=== PATIENT | male | born 1940 | race Caucasian/White ===

== ENCOUNTER → 2017-08-15 | Outpatient (CLI) | payer MEDICARE, BC ==
[~2017-08-15] MED LIST: ATORVASTATIN PO; BACLOFEN10 MG PO; CALCIUM 600 +1 EAC1 PO; CLONAZEPAM0.5 MG PO; CLONAZEPAM1 MG PO; CLOPIDOGREL75 MG PO; DILTIAZEM HCL60 MG PO; DIOVAN160 MG PO; DYMISTA NASAL S23 GM; FISH OIL 1,0001 EAC3 PO; FISH OIL PO; GABAPENTIN300 MG PO; GLUCOSAMINE &1 EAC1 PO; GLUCOSAMINE CH1 EAC2 PO; HYDROCODON-ACE1 EAC9 PO; LIPITOR20 MG PO; LISINOPRIL10 MG PO; NASACORT; NASAL SPRAY30 M1; NEURONTIN PO; PANTOPRAZOLE SO40 MG PO; TESTOPEL75 MG IM; TRAVATAN Z5 ML OU; VIAGRA100 MG PO; WELLBUTRIN SR150 MG PO; XYZAL5 MG PO
[2017-08-15 08:00] LABS: BASOPHILS % 0.7 % (0.0-1.0); EOSINOPHILS # (AUTO) 0.2 (0.0-0.4); EOSINOPHILS % 3.6 % (0.0-6.0); HEMATOCRIT 43.6 % (38.2-49.6); HEMOGLOBIN 14.9 g/dL (14.0-18.0); LYMPHOCYTES # (AUTO) 1.8 (1.0-3.2); LYMPHOCYTES % 32.7 % (18.0-39.1); MEAN CORPUSCULAR HEMOGLOBIN 31.9 pg (28-32); MEAN CORPUSCULAR HGB CONC 34.2 g/dL (31-35); MEAN CORPUSCULAR VOLUME 93.4 fL (81-99); MONOCYTES # (AUTO) 0.7 (0.2-0.8); MONOCYTES % 12.5 % (4.4-11.3); NEUTROPHILS # (AUTO) 2.8 (2.1-6.9); NEUTROPHILS % 50.3 % (38.7-80.0); PLATELET COUNT 143 x10e3/uL (140-360); RED BLOOD COUNT 4.67 x10e6/uL (4.3-5.7); RED CELL DISTRIBUTION WIDTH 12.9 % (11.7-14.4)
== END | disposition home or self-care (01) ==
LOC: LAB 07:02 → OR 07:02 → EDSTATUS 09:00
PROVIDERS: ATTEND Physical Medicine & Rehabilitation Pain Medicine
DX: M47.22 Other spondylosis with radiculopathy, cervical region (principal); M54.17 Radiculopathy, lumbosacral region; M54.16 Radiculopathy, lumbar region; G89.4 Chronic pain syndrome; Z98.1 Arthrodesis status; I25.10 Atherosclerotic heart disease of native coronary artery without angina pectoris; I10 Essential (primary) hypertension; Z95.0 Presence of cardiac pacemaker; Z53.09 Procedure and treatment not carried out because of other contraindication
CPT/HCPCS: 36415; 85025

== ENCOUNTER → 2017-11-05 | Day surgery (SDC) | payer MEDICARE, BC ==
[2017-10-31 15:11] LABS: BASOPHILS % 0.4 % (0.0-1.0); EOSINOPHILS # (AUTO) 0.3 (0.0-0.4); EOSINOPHILS % 5.3 % (0.0-6.0); HEMATOCRIT 47.8 % (38.2-49.6); HEMOGLOBIN 16.5 g/dL (14.0-18.0); LYMPHOCYTES # (AUTO) 1.3 (1.0-3.2); LYMPHOCYTES % 23.6 % (18.0-39.1); MEAN CORPUSCULAR HEMOGLOBIN 31.8 pg (28-32); MEAN CORPUSCULAR HGB CONC 34.5 g/dL (31-35); MEAN CORPUSCULAR VOLUME 92.1 fL (81-99); MONOCYTES # (AUTO) 0.7 (0.2-0.8); NEUTROPHILS # (AUTO) 3.2 (2.1-6.9); NEUTROPHILS % 58.5 % (38.7-80.0); PLATELET COUNT 107 x10e3/uL (140-360); RED BLOOD COUNT 5.19 x10e6/uL (4.3-5.7); RED CELL DISTRIBUTION WIDTH 12.2 % (11.7-14.4)
[~2017-11-05] MED LIST changes: +ASPIRIN81 MG PO; +AXIRON30 MG/1.5 PO; +CELEBREX200 MG PO; +FENTANYL CITRATE/PF 100MCG/2 ML INJ ONE; +LIDOCAINE HCL 2% LOCAL INJ 5 ML SDV VIAL INJ ONE; +MIDAZOLAM HCL 2 MG/2 ML VIAL ONE; +PROPOFOL IV EMULSION 10 MG/ML 50 ML VIAL ONE; +VIAGRA50 MG PO
--- OUTSIDE RECORDS SUMMARY | 2017-11-05 12:18 | XMS REPORT ---
Author Author [facility] Address Unknown Phone Unavailable Care Team Providers Care Geomorphologist Name Role Phone CYNDY MADERA Unavailable Unavailable Problems This patient has no known problems. Allergies, Adverse Reactions, Alerts This patient has no known allergies or adverse reactions. Medications This patient has no known medications. Results Test Description Test Time Test Comments Text Results Atomic Results Result Comments CHEST 2 VIEWS [place] [id number] [place] [address] Patient Name: ANJUM PITTAMN MR #: [id number] : 1940 Age/Sex: 76/M Req # : [id number] Adm Physician: Ordered by: CYNDY MADERA MD Report #: [id number] Location: OR Room/Bed: Procedure: [id number] DX/CHEST 2 VIEWS Exam Date: Exam Time: REPORT STATUS: Signed PROCEDURE: Frontal and lateral views of the chest. COMPARISON: Chest 2 views 06/15/2010. INDICATIONS: PRE-OP FINDINGS: Lines/tubes: Right chest device with leads projecting over the expected regions of the right atrium and ventricle. Lungs: The lungs are well inflated and clear. There is no evidence of pneumonia or pulmonary edema. Pleura: There is no pleural effusion or pneumothorax. Heart and mediastinum: The heart and the mediastinum are normal. Bones: No acute bony abnormality. IMPRESSION: No acute radiographic abnormality. Dictated by: Marisela Joel M.D. on 06/17/2017 at 16:33 Electronically approved by: Marisela Joel M.D. on 06/17/2017 at 16:33 Dictated By: MARISELA JOEL MD 32 Transcribed By: BAO on 06/17/171632 COPY TO: CYNDY MADERA MD
== END | disposition home or self-care (01) ==
LOC: OR 12:16
PROVIDERS: ATTEND Internal Medicine Gastroenterology
DX: K22.70 Barrett's esophagus without dysplasia (principal); Z86.010 Personal history of colon polyps; K29.70 Gastritis, unspecified, without bleeding; K44.9 Diaphragmatic hernia without obstruction or gangrene; K21.9 Gastro-esophageal reflux disease without esophagitis; G47.33 Obstructive sleep apnea (adult) (pediatric); I25.10 Atherosclerotic heart disease of native coronary artery without angina pectoris; I10 Essential (primary) hypertension; E78.5 Hyperlipidemia, unspecified; H40.9 Unspecified glaucoma; H91.90 Unspecified hearing loss, unspecified ear; F32.9 Major depressive disorder, single episode, unspecified; F41.9 Anxiety disorder, unspecified; Z01.812 Encounter for preprocedural laboratory examination; Z01.810 Encounter for preprocedural cardiovascular examination; Z79.82 Long term (current) use of aspirin; Z95.0 Presence of cardiac pacemaker; Z95.5 Presence of coronary angioplasty implant and graft
CPT/HCPCS: 36415; 43239; 45378; 85025; 88305; 88312; 93005; J2001; J2250

== ENCOUNTER 2021-05-12 16:46 | Inpatient (IN) | payer MEDICARE, BC, OTHER ==
[~2021-05-12] VITALS: Ht 172.7 cm; Wt 79.4 kg
[~2021-05-12 16:46] MED LIST changes: -FENTANYL CITRATE/PF 100MCG/2 ML INJ ONE; -LIDOCAINE HCL 2% LOCAL INJ 5 ML SDV VIAL INJ ONE; -MIDAZOLAM HCL 2 MG/2 ML VIAL ONE; -PROPOFOL IV EMULSION 10 MG/ML 50 ML VIAL ONE
[2021-05-12] MEDS ORDERED: ONDANSETRON HCL INJ 2MG/ML 2ML 2 MG/ML VIAL IV STA (17:11)
[2021-05-12 17:16] LABS: BASOPHILS % 0.4 % (0.0-1.0); EOSINOPHILS # (AUTO) 0.3 (0.0-0.4); EOSINOPHILS % 3.9 % (0.0-6.0); HEMATOCRIT 47.3 % (38.2-49.6); HEMOGLOBIN 16.1 g/dL (14.0-18.0); LYMPHOCYTES # (AUTO) 1.6 (1.0-3.2); LYMPHOCYTES % 23.3 % (18.0-39.1); MEAN CORPUSCULAR HEMOGLOBIN 31.1 pg (28-32); MEAN CORPUSCULAR VOLUME 91.3 fL (81-99); MONOCYTES # (AUTO) 0.9 (0.2-0.8); MONOCYTES % 12.7 % (4.4-11.3); NEUTROPHILS # (AUTO) 4.1 (2.1-6.9); NEUTROPHILS % 59.3 % (38.7-80.0); PLATELET COUNT 110 x10e3/uL (140-360); RED BLOOD COUNT 5.18 x10e6/uL (4.3-5.7); RED CELL DISTRIBUTION WIDTH 13.5 % (11.7-14.4)
[2021-05-12] MEDS ORDERED: MORPHINE SULFATE INJ 4 MG/ML INJ 1ML IV ONE (17:30)
[2021-05-12 17:34] LABS: ALBUMIN 4.1 g/dL (3.5-5.0); ALBUMIN/GLOBULIN RATIO 1.5 (0.8-2.0); ANION GAP 14.1 mmol/L (8-16); CALCIUM 9.2 mg/dL (8.4-10.2); CREATININE, SERUM 1.29 mg/dL (0.72-1.25); POTASSIUM 4.1 mmol/L (3.5-5.1)
[2021-05-12 17:39] LABS: CREATINE KINASE MB 5.9 ng/mL (0-5.0)
[2021-05-12 17:54] LABS: CLARITY,URINE SL CLOUDY (CLEAR); COLOR,URINE YELLOW (YELLOW)
[2021-05-12 17:55] LABS: KETONES,URINE NEGATIVE (NEGATIVE); LEUKOCYTE ESTERASE ,URINE NEGATIVE (NEGATIVE); NITRITE,URINE NEGATIVE (NEGATIVE); PROTEIN,URINE DIPSTICK NEGATIVE (NEGATIVE); URINE UROBILINOGEN 0.2 mg/dL (0.2 - 1)
[2021-05-12 18:08] LABS: WBC,URINE (MAN) 0-5 /HPF (0-5)
[2021-05-12] MEDS: HYDROMORPHONE 1MG/1ML INJ IV PRN ×2 (18:15→21:28)
[2021-05-12] MEDS ORDERED: HYDROMORPHONE 1MG/1ML INJ IV STA ×2 (18:46→19:01)
[2021-05-12] MEDS ORDERED: ETOMIDATE 40 MG/ 20ML VIAL IV STA (19:01)
[2021-05-12] MEDS ORDERED: HYDROMORPHONE 1MG/1ML INJ ONE (19:02)
[2021-05-12] MEDS ORDERED: ETOMIDATE 40 MG/ 20ML VIAL IV ONE (19:07)
[2021-05-12] MEDS ORDERED: LIDOCAINE 1% W/EPINEPHRINE 20 ML VIAL INJ ONE (19:30)
[2021-05-12] MEDS: ONDANSETRON HCL INJ 2MG/ML 2ML 2 MG/ML VIAL IV PRN (20:40)
[2021-05-12] MEDS: SODIUM CHLORIDE 0.9% 1000ML 1,000 ML IV SCH (20:45)
[2021-05-13] VITALS (9 sets, daily range): BP systolic 140–165; BP diastolic 69–94
[2021-05-13] MEDS: ONDANSETRON HCL INJ 2MG/ML 2ML 2 MG/ML VIAL IV PRN (00:16)
[2021-05-13] MEDS: HYDROMORPHONE 1MG/1ML INJ IV PRN ×5 (00:38→22:30)
[2021-05-13] MEDS: LORATADINE 10 MG TAB PO SCH ×2 (01:54→20:48)
[2021-05-13] MEDS: CLONAZEPAM 0.5 MG TAB PO SCH (01:54)
[2021-05-13] MEDS: SODIUM CHLORIDE 0.9% 1000ML 1,000 ML IV SCH ×3 (05:36→20:48)
[2021-05-13 08:02] LABS: BASOPHILS % 0.3 % (0.0-1.0); EOSINOPHILS # (AUTO) 0.2 (0.0-0.4); EOSINOPHILS % 2.2 % (0.0-6.0); HEMOGLOBIN 14.8 g/dL (14.0-18.0); LYMPHOCYTES # (AUTO) 1.5 (1.0-3.2); LYMPHOCYTES % 19.7 % (18.0-39.1); MEAN CORPUSCULAR HEMOGLOBIN 31.1 pg (28-32); MEAN CORPUSCULAR HGB CONC 32.9 g/dL (31-35); MEAN CORPUSCULAR VOLUME 94.5 fL (81-99); MONOCYTES % 13.2 % (4.4-11.3); NEUTROPHILS % 64.3 % (38.7-80.0); PLATELET COUNT 87 x10e3/uL (140-360); RED BLOOD COUNT 4.76 x10e6/uL (4.3-5.7); RED CELL DISTRIBUTION WIDTH 13.8 % (11.7-14.4)
[2021-05-13 08:30] LABS: CREATINE KINASE MB 2.9 ng/mL (0-5.0)
[2021-05-13 08:52] LABS: ALBUMIN 3.8 g/dL (3.5-5.0); ALBUMIN/GLOBULIN RATIO 1.4 (0.8-2.0); ANION GAP 13.9 mmol/L (8-16); CALCIUM 8.8 mg/dL (8.4-10.2); CREATININE, SERUM 1.21 mg/dL (0.72-1.25); POTASSIUM 3.9 mmol/L (3.5-5.1)
[2021-05-13] MEDS ORDERED: CLONAZEPAM 0.5 MG TAB PO SCH (09:00)
[2021-05-13] MEDS ORDERED: POLYETHYLENE GLYCOL 3350 17 GM PACK PO PRN (14:15)
[2021-05-13] MEDS: GABAPENTIN 300 MG CAP PO SCH ×2 (15:51→20:48)
[2021-05-13] MEDS: DOCUSATE SODIUM 100 MG CAP PO SCH (15:51)
[2021-05-13] MEDS: HYDROCODONE/APAP 10MG-325MG TAB PO SCH (17:03)
[2021-05-13 17:10] LABS: CREATINE KINASE MB 1.8 ng/mL (0-5.0)
[2021-05-13] MEDS ORDERED: LORATADINE 10 MG TAB PO SCH (21:00)
[2021-05-14] VITALS (9 sets, daily range): BP systolic 124–174; BP diastolic 66–95
[2021-05-14] MEDS: SODIUM CHLORIDE 0.9% 1000ML 1,000 ML IV SCH ×3 (05:13→20:46)
[2021-05-14 06:42] LABS: BASOPHILS % 0.3 % (0.0-1.0); EOSINOPHILS # (AUTO) 0.1 (0.0-0.4); EOSINOPHILS % 1.7 % (0.0-6.0); HEMATOCRIT 40.2 % (38.2-49.6); HEMOGLOBIN 13.2 g/dL (14.0-18.0); LYMPHOCYTES # (AUTO) 1.2 (1.0-3.2); LYMPHOCYTES % 15.4 % (18.0-39.1); MEAN CORPUSCULAR HEMOGLOBIN 30.8 pg (28-32); MEAN CORPUSCULAR HGB CONC 32.8 g/dL (31-35); MEAN CORPUSCULAR VOLUME 93.9 fL (81-99); MONOCYTES # (AUTO) 1.2 (0.2-0.8); MONOCYTES % 15.8 % (4.4-11.3); NEUTROPHILS # (AUTO) 5.1 (2.1-6.9); NEUTROPHILS % 66.4 % (38.7-80.0); PLATELET COUNT 74 x10e3/uL (140-360); RED BLOOD COUNT 4.28 x10e6/uL (4.3-5.7); RED CELL DISTRIBUTION WIDTH 13.5 % (11.7-14.4)
[2021-05-14 07:15] LABS: ALBUMIN/GLOBULIN RATIO 1.1 (0.8-2.0); ANION GAP 11.4 mmol/L (8-16); CHOL/HDL RATIO 1.9 (3.9-4.7); CREATININE, SERUM 1.04 mg/dL (0.72-1.25); MAGNESIUM 1.6 MG/DL (1.3-2.1); PHOSPHORUS 2.3 MG/DL (2.3-4.7); POTASSIUM 3.4 mmol/L (3.5-5.1)
[2021-05-14 07:27] LABS: THYROID STIMULATING HORMONE 0.25 uIU/mL (0.350-4.940)
[2021-05-14] MEDS ORDERED: POTASSIUM CHLORIDE 20 MEQ TAB CR PO ONE (07:45)
[2021-05-14] MEDS ORDERED: MAGNESIUM SULFATE 2GM/50ML 50 ML IV ONE ×2 (07:45→07:58)
[2021-05-14] MEDS: GABAPENTIN 300 MG CAP PO SCH ×3 (08:26→20:46)
[2021-05-14] MEDS: PANTOPRAZOLE SOD 40 MG TABEC PO SCH (08:26)
[2021-05-14] MEDS: ASPIRIN 81 MG CHEW TAB PO SCH (08:26)
[2021-05-14] MEDS: CLONAZEPAM 0.5 MG TAB PO SCH (08:26)
[2021-05-14] MEDS: DOCUSATE SODIUM 100 MG CAP PO SCH ×2 (08:26→16:11)
[2021-05-14] MEDS: ATORVASTATIN 20 MG TAB PO SCH (08:26)
[2021-05-14] MEDS: VALSARTAN 80 MG TAB PO SCH (08:26)
[2021-05-14] MEDS: HYDROCODONE/APAP 10MG-325MG TAB PO SCH (08:26)
[2021-05-14] MEDS: [UNRECOGNIZED DRUG - OTHER] PO SCH (09:00)
[2021-05-14] MEDS: HYDRALAZINE HCL 20 MG/ML VIAL IV PRN ×2 (16:07→23:58)
[2021-05-14] MEDS: HYDROCODONE/APAP 10MG-325MG TAB PO PRN (16:12)
[2021-05-14] MEDS: HYDROMORPHONE 1MG/1ML INJ IV PRN ×2 (16:15→20:48)
[2021-05-14] MEDS: LORATADINE 10 MG TAB PO SCH (20:46)
[2021-05-14] MEDS ORDERED: HYDROMORPHONE 1MG/1ML INJ IV STA (23:27)
[2021-05-14] MEDS: ACETAMINOPHEN 325 MG TAB PO PRN (23:59)
[2021-05-15] VITALS (7 sets, daily range): BP systolic 117–143; BP diastolic 59–76
[2021-05-15] MEDS: SODIUM CHLORIDE 0.9% 1000ML 1,000 ML IV SCH (04:12)
[2021-05-15] MEDS: HYDROCODONE/APAP 10MG-325MG TAB PO PRN ×3 (04:12→18:08)
[2021-05-15] MEDS: ACETAMINOPHEN 325 MG TAB PO PRN ×2 (04:13→04:14)
[2021-05-15 05:47] LABS: BASOPHILS % 0.3 % (0.0-1.0); EOSINOPHILS # (AUTO) 0.1 (0.0-0.4); EOSINOPHILS % 1.2 % (0.0-6.0); HEMATOCRIT 41.7 % (38.2-49.6); HEMOGLOBIN 13.7 g/dL (14.0-18.0); LYMPHOCYTES # (AUTO) 1.5 (1.0-3.2); LYMPHOCYTES % 14.7 % (18.0-39.1); MEAN CORPUSCULAR HEMOGLOBIN 30.9 pg (28-32); MEAN CORPUSCULAR HGB CONC 32.9 g/dL (31-35); MEAN CORPUSCULAR VOLUME 93.9 fL (81-99); MONOCYTES # (AUTO) 1.4 (0.2-0.8); MONOCYTES % 13.7 % (4.4-11.3); NEUTROPHILS # (AUTO) 7.3 (2.1-6.9); NEUTROPHILS % 69.7 % (38.7-80.0); PLATELET COUNT 85 x10e3/uL (140-360); RED BLOOD COUNT 4.44 x10e6/uL (4.3-5.7); RED CELL DISTRIBUTION WIDTH 13.6 % (11.7-14.4)
[2021-05-15 06:02] LABS: ANION GAP 11.6 mmol/L (8-16); CALCIUM 7.8 mg/dL (8.4-10.2); MAGNESIUM 1.9 MG/DL (1.3-2.1); POTASSIUM 3.6 mmol/L (3.5-5.1)
[2021-05-15] MEDS: HYDROMORPHONE 1MG/1ML INJ IV PRN ×3 (06:09→19:24)
[2021-05-15] MEDS: [UNRECOGNIZED DRUG - OTHER] PO SCH (09:00)
[2021-05-15] MEDS: PANTOPRAZOLE SOD 40 MG TABEC PO SCH (09:09)
[2021-05-15] MEDS: GABAPENTIN 300 MG CAP PO SCH ×3 (09:09→20:51)
[2021-05-15] MEDS: VALSARTAN 80 MG TAB PO SCH (09:10)
[2021-05-15] MEDS: DOCUSATE SODIUM 100 MG CAP PO SCH ×2 (09:10→15:52)
[2021-05-15] MEDS: ASPIRIN 81 MG CHEW TAB PO SCH (09:10)
[2021-05-15] MEDS: ATORVASTATIN 20 MG TAB PO SCH (09:10)
[2021-05-15] MEDS: CLONAZEPAM 0.5 MG TAB PO SCH (09:10)
[2021-05-15] MEDS: TRAVOPROST(OPTH) 2.5 ML BTL OP SCH (09:10)
[2021-05-15] MEDS: FLUTICASONE NS SCH ×2 (09:14→09:22)
[2021-05-15] MEDS: AZELASTINE NS SCH ×2 (09:14→09:22)
[2021-05-15] MEDS ORDERED: SODIUM CHLORIDE 0.9% 1000ML 1,000 ML ONE (12:46)
[2021-05-15] MEDS: LORATADINE 10 MG TAB PO SCH (20:50)
[2021-05-15] MEDS: TRAZODONE HCL 50 MG TAB PO SCH ×2 (20:50)
[2021-05-15] MEDS ORDERED: TRAZODONE HCL 50 MG TAB PO SCH (21:00)
[2021-05-16] VITALS (7 sets, daily range): BP systolic 140–169; BP diastolic 74–101
[2021-05-16] MEDS: HYDROMORPHONE 1MG/1ML INJ IV PRN (05:33)
[2021-05-16 07:52] LABS: BASOPHILS % 0.4 % (0.0-1.0); EOSINOPHILS # (AUTO) 0.2 (0.0-0.4); EOSINOPHILS % 1.9 % (0.0-6.0); HEMATOCRIT 42.4 % (38.2-49.6); HEMOGLOBIN 13.9 g/dL (14.0-18.0); LYMPHOCYTES # (AUTO) 1.3 (1.0-3.2); LYMPHOCYTES % 15.3 % (18.0-39.1); MEAN CORPUSCULAR HEMOGLOBIN 31.4 pg (28-32); MEAN CORPUSCULAR HGB CONC 32.8 g/dL (31-35); MEAN CORPUSCULAR VOLUME 95.7 fL (81-99); MONOCYTES # (AUTO) 1.1 (0.2-0.8); MONOCYTES % 13.8 % (4.4-11.3); NEUTROPHILS # (AUTO) 5.7 (2.1-6.9); NEUTROPHILS % 68.2 % (38.7-80.0); PLATELET COUNT 85 x10e3/uL (140-360); RED BLOOD COUNT 4.43 x10e6/uL (4.3-5.7); RED CELL DISTRIBUTION WIDTH 13.9 % (11.7-14.4)
[2021-05-16] MEDS ORDERED: BUPIVACAINE HCL 0.5% INJ 30 ML VIAL INJ ONE (08:50)
[2021-05-16] MEDS ORDERED: Vancomycin IV 1 GM VIAL ONE (08:50)
[2021-05-16] MEDS: [UNRECOGNIZED DRUG - OTHER] PO SCH (09:00)
[2021-05-16] MEDS: PANTOPRAZOLE SOD 40 MG TABEC PO SCH (09:00)
[2021-05-16] MEDS: GABAPENTIN 300 MG CAP PO SCH ×3 (09:00→20:39)
[2021-05-16] MEDS: ATORVASTATIN 20 MG TAB PO SCH (09:00)
[2021-05-16] MEDS: CLONAZEPAM 0.5 MG TAB PO SCH (09:00)
[2021-05-16] MEDS: ASPIRIN 81 MG CHEW TAB PO SCH (09:00)
[2021-05-16] MEDS: VALSARTAN 80 MG TAB PO SCH (09:00)
[2021-05-16] MEDS: DOCUSATE SODIUM 100 MG CAP PO SCH ×2 (09:00→14:21)
[2021-05-16] MEDS: AZELASTINE NS SCH (09:34)
[2021-05-16] MEDS: TRAVOPROST(OPTH) 2.5 ML BTL OP SCH (09:34)
[2021-05-16] MEDS: FLUTICASONE NS SCH (09:34)
[2021-05-16 09:50] LABS: ANION GAP 12.7 mmol/L (8-16); CALCIUM 8.3 mg/dL (8.4-10.2); CREATININE, SERUM 1.08 mg/dL (0.72-1.25); POTASSIUM 3.7 mmol/L (3.5-5.1)
[2021-05-16] MEDS: TRAZODONE HCL 50 MG TAB PO SCH (20:39)
[2021-05-16] MEDS: LORATADINE 10 MG TAB PO SCH (20:39)
[2021-05-16] MEDS: HYDROCODONE/APAP 10MG-325MG TAB PO PRN (23:11)
[2021-05-17] VITALS (7 sets, daily range): BP systolic 148–159; BP diastolic 74–86
[2021-05-17 06:30] LABS: BASOPHILS % 0.3 % (0.0-1.0); EOSINOPHILS # (AUTO) 0.2 (0.0-0.4); EOSINOPHILS % 2.9 % (0.0-6.0); HEMATOCRIT 40.1 % (38.2-49.6); HEMOGLOBIN 13.4 g/dL (14.0-18.0); LYMPHOCYTES % 13.8 % (18.0-39.1); MEAN CORPUSCULAR HEMOGLOBIN 31.2 pg (28-32); MEAN CORPUSCULAR HGB CONC 33.4 g/dL (31-35); MEAN CORPUSCULAR VOLUME 93.5 fL (81-99); MONOCYTES # (AUTO) 0.9 (0.2-0.8); MONOCYTES % 12.4 % (4.4-11.3); NEUTROPHILS % 70.2 % (38.7-80.0); PLATELET COUNT 123 x10e3/uL (140-360); RED BLOOD COUNT 4.29 x10e6/uL (4.3-5.7); RED CELL DISTRIBUTION WIDTH 13.6 % (11.7-14.4)
[2021-05-17 06:52] LABS: ANION GAP 14.5 mmol/L (8-16); CALCIUM 8.6 mg/dL (8.4-10.2); CREATININE, SERUM 1.05 mg/dL (0.72-1.25); POTASSIUM 3.5 mmol/L (3.5-5.1)
[2021-05-17] MEDS: DOCUSATE SODIUM 100 MG CAP PO SCH ×2 (07:38→13:47)
[2021-05-17] MEDS: [UNRECOGNIZED DRUG - OTHER] PO SCH (07:38)
[2021-05-17] MEDS: CLONAZEPAM 0.5 MG TAB PO SCH (07:38)
[2021-05-17] MEDS: ASPIRIN 81 MG CHEW TAB PO SCH (07:38)
[2021-05-17] MEDS: VALSARTAN 80 MG TAB PO SCH (07:38)
[2021-05-17] MEDS: FLUTICASONE NS SCH (07:39)
[2021-05-17] MEDS: AZELASTINE NS SCH (07:39)
[2021-05-17] MEDS: GABAPENTIN 300 MG CAP PO SCH ×3 (07:39→21:35)
[2021-05-17] MEDS: TRAVOPROST(OPTH) 2.5 ML BTL OP SCH (07:39)
[2021-05-17] MEDS: PANTOPRAZOLE SOD 40 MG TABEC PO SCH (07:39)
[2021-05-17] MEDS: ATORVASTATIN 20 MG TAB PO SCH (07:39)
[2021-05-17] MEDS: HYDROCODONE/APAP 10MG-325MG TAB PO PRN ×2 (08:51→19:20)
[2021-05-17] MEDS: HYDROMORPHONE 1MG/1ML INJ IV PRN (14:42)
[2021-05-17] MEDS: CARVEDILOL 3.125 MG TAB PO SCH (17:21)
[2021-05-17] MEDS: TRAZODONE HCL 50 MG TAB PO SCH (21:35)
[2021-05-17] MEDS: LORATADINE 10 MG TAB PO SCH (21:35)
[2021-05-18] VITALS: BP 153/86
[2021-05-18] MEDS: HYDROMORPHONE 1MG/1ML INJ IV PRN (02:23)
[2021-05-18 04:20] VITALS: BP 128/65
[2021-05-18 05:27] LABS: BASOPHILS % 0.3 % (0.0-1.0); EOSINOPHILS # (AUTO) 0.2 (0.0-0.4); EOSINOPHILS % 2.3 % (0.0-6.0); HEMOGLOBIN 13.4 g/dL (14.0-18.0); LYMPHOCYTES # (AUTO) 1.2 (1.0-3.2); LYMPHOCYTES % 16.1 % (18.0-39.1); MEAN CORPUSCULAR HEMOGLOBIN 31.6 pg (28-32); MEAN CORPUSCULAR HGB CONC 34.4 g/dL (31-35); MONOCYTES # (AUTO) 1.1 (0.2-0.8); MONOCYTES % 14.5 % (4.4-11.3); NEUTROPHILS # (AUTO) 5.1 (2.1-6.9); NEUTROPHILS % 66.5 % (38.7-80.0); PLATELET COUNT 145 x10e3/uL (140-360); RED BLOOD COUNT 4.24 x10e6/uL (4.3-5.7); RED CELL DISTRIBUTION WIDTH 13.6 % (11.7-14.4)
[2021-05-18 05:48] LABS: ALBUMIN 2.9 g/dL (3.5-5.0); ALBUMIN/GLOBULIN RATIO 0.8 (0.8-2.0); ANION GAP 12.4 mmol/L (8-16); CALCIUM 8.4 mg/dL (8.4-10.2); CREATININE, SERUM 1.17 mg/dL (0.72-1.25); POTASSIUM 3.4 mmol/L (3.5-5.1)
[2021-05-18] MEDS: TRAVOPROST(OPTH) 2.5 ML BTL OP SCH (07:53)
[2021-05-18] MEDS: AZELASTINE NS SCH (07:53)
[2021-05-18] MEDS: FLUTICASONE NS SCH (07:53)
[2021-05-18] MEDS: [UNRECOGNIZED DRUG - OTHER] PO SCH (07:54)
[2021-05-18 08:45] VITALS: BP 147/83
[2021-05-18] MEDS: ASPIRIN 81 MG CHEW TAB PO SCH (08:58)
[2021-05-18] MEDS: CARVEDILOL 3.125 MG TAB PO SCH ×2 (08:58→14:28)
[2021-05-18] MEDS: DOCUSATE SODIUM 100 MG CAP PO SCH ×2 (08:58→14:29)
[2021-05-18] MEDS: CLONAZEPAM 0.5 MG TAB PO SCH (08:59)
[2021-05-18] MEDS: GABAPENTIN 300 MG CAP PO SCH ×3 (08:59→21:29)
[2021-05-18] MEDS: ATORVASTATIN 20 MG TAB PO SCH (08:59)
[2021-05-18] MEDS: PANTOPRAZOLE SOD 40 MG TABEC PO SCH (08:59)
[2021-05-18] MEDS: VALSARTAN 80 MG TAB PO SCH (08:59)
[2021-05-18 09:31] VITALS: BP 147/83
[2021-05-18 12:01] VITALS: BP 138/78
[2021-05-18] MEDS ORDERED: ACETAMINOPHEN 1000 MG/100 ML 100 ML IV ONE (17:50)
[2021-05-18] MEDS ORDERED: Vancomycin IV 1 GM VIAL ONE (17:50)
[2021-05-18 19:20] VITALS: BP 107/68
[2021-05-18] MEDS: LORATADINE 10 MG TAB PO SCH (21:29)
[2021-05-18] MEDS: TRAZODONE HCL 50 MG TAB PO SCH (21:29)
[2021-05-19] VITALS (10 sets, daily range): BP systolic 111–151; BP diastolic 66–84
[2021-05-19 05:09] LABS: BASOPHILS % 0.1 % (0.0-1.0); HEMATOCRIT 42.4 % (38.2-49.6); HEMOGLOBIN 14.1 g/dL (14.0-18.0); LYMPHOCYTES # (AUTO) 0.5 (1.0-3.2); LYMPHOCYTES % 5.7 % (18.0-39.1); MEAN CORPUSCULAR HEMOGLOBIN 31.3 pg (28-32); MEAN CORPUSCULAR HGB CONC 33.3 g/dL (31-35); MEAN CORPUSCULAR VOLUME 94.2 fL (81-99); MONOCYTES # (AUTO) 0.4 (0.2-0.8); MONOCYTES % 5.2 % (4.4-11.3); NEUTROPHILS # (AUTO) 7.2 (2.1-6.9); NEUTROPHILS % 88.8 % (38.7-80.0); PLATELET COUNT 155 x10e3/uL (140-360); RED CELL DISTRIBUTION WIDTH 13.5 % (11.7-14.4)
[2021-05-19 05:36] LABS: ANION GAP 13.1 mmol/L (8-16); CALCIUM 8.6 mg/dL (8.4-10.2); CREATININE, SERUM 1.22 mg/dL (0.72-1.25); POTASSIUM 4.1 mmol/L (3.5-5.1)
[2021-05-19] MEDS: FLUTICASONE NS SCH (08:04)
[2021-05-19] MEDS: AZELASTINE NS SCH (08:04)
[2021-05-19] MEDS: [UNRECOGNIZED DRUG - OTHER] PO SCH (08:04)
[2021-05-19] MEDS: TRAVOPROST(OPTH) 2.5 ML BTL OP SCH (08:04)
[2021-05-19] MEDS: DOCUSATE SODIUM 100 MG CAP PO SCH ×2 (09:01→15:10)
[2021-05-19] MEDS: ASPIRIN 81 MG CHEW TAB PO SCH (09:02)
[2021-05-19] MEDS: CARVEDILOL 3.125 MG TAB PO SCH ×2 (09:02→15:11)
[2021-05-19] MEDS: VALSARTAN 80 MG TAB PO SCH (09:03)
[2021-05-19] MEDS: PANTOPRAZOLE SOD 40 MG TABEC PO SCH (09:03)
[2021-05-19] MEDS: ATORVASTATIN 20 MG TAB PO SCH (09:03)
[2021-05-19] MEDS: CLONAZEPAM 0.5 MG TAB PO SCH (09:03)
[2021-05-19] MEDS: GABAPENTIN 300 MG CAP PO SCH ×3 (09:03→20:06)
[2021-05-19] MEDS: ENOXAPARIN SOD INJ 40 MG/0.4 ML SYR SC SCH (15:11)
[2021-05-19] MEDS: HYDROMORPHONE 1MG/1ML INJ IV PRN (15:25)
[2021-05-19] MEDS: HYDROCODONE/APAP 10MG-325MG TAB PO PRN (19:26)
[2021-05-19] MEDS: TRAZODONE HCL 50 MG TAB PO SCH (20:06)
[2021-05-19] MEDS: LORATADINE 10 MG TAB PO SCH (20:06)
[2021-05-20] VITALS (10 sets, daily range): BP systolic 142–164; BP diastolic 71–88
[2021-05-20] MEDS: HYDROMORPHONE 1MG/1ML INJ IV PRN ×2 (06:08→20:43)
[2021-05-20 06:50] LABS: BASOPHILS % 0.1 % (0.0-1.0); EOSINOPHILS # (AUTO) 0.1 (0.0-0.4); EOSINOPHILS % 0.8 % (0.0-6.0); HEMATOCRIT 40.1 % (38.2-49.6); HEMOGLOBIN 14.3 g/dL (14.0-18.0); LYMPHOCYTES # (AUTO) 1.2 (1.0-3.2); LYMPHOCYTES % 13.8 % (18.0-39.1); MEAN CORPUSCULAR HGB CONC 35.7 g/dL (31-35); MEAN CORPUSCULAR VOLUME 95.5 fL (81-99); MONOCYTES % 11.5 % (4.4-11.3); NEUTROPHILS # (AUTO) 6.3 (2.1-6.9); NEUTROPHILS % 73.5 % (38.7-80.0); PLATELET COUNT 154 x10e3/uL (140-360); RED CELL DISTRIBUTION WIDTH 15.4 % (11.7-14.4)
[2021-05-20] MEDS: [UNRECOGNIZED DRUG - OTHER] PO SCH (07:29)
[2021-05-20] MEDS: AZELASTINE NS SCH (07:29)
[2021-05-20] MEDS: TRAVOPROST(OPTH) 2.5 ML BTL OP SCH (07:29)
[2021-05-20] MEDS: FLUTICASONE NS SCH (07:29)
[2021-05-20 07:48] LABS: ANION GAP 13.7 mmol/L (8-16); CALCIUM 8.2 mg/dL (8.4-10.2); CREATININE, SERUM 1.08 mg/dL (0.72-1.25); POTASSIUM 3.7 mmol/L (3.5-5.1)
[2021-05-20] MEDS: ASPIRIN 81 MG CHEW TAB PO SCH (08:18)
[2021-05-20] MEDS: DOCUSATE SODIUM 100 MG CAP PO SCH ×2 (08:18→15:48)
[2021-05-20] MEDS: GABAPENTIN 300 MG CAP PO SCH ×3 (08:19→20:45)
[2021-05-20] MEDS: CARVEDILOL 3.125 MG TAB PO SCH ×2 (08:19→15:49)
[2021-05-20] MEDS: VALSARTAN 80 MG TAB PO SCH (08:19)
[2021-05-20] MEDS: ATORVASTATIN 20 MG TAB PO SCH (08:19)
[2021-05-20] MEDS: PANTOPRAZOLE SOD 40 MG TABEC PO SCH (08:19)
[2021-05-20] MEDS ORDERED: HYDROMORPHONE 1MG/1ML INJ IV ONE (09:00)
[2021-05-20] MEDS: HYDRALAZINE HCL 20 MG/ML VIAL IV PRN (14:08)
[2021-05-20] MEDS: ENOXAPARIN SOD INJ 40 MG/0.4 ML SYR SC SCH (15:48)
[2021-05-20] MEDS: LORATADINE 10 MG TAB PO SCH (20:44)
[2021-05-20] MEDS: TRAZODONE HCL 50 MG TAB PO SCH (20:45)
[2021-05-20] MEDS: HYDROCODONE/APAP 10MG-325MG TAB PO PRN (23:18)
[2021-05-21] VITALS (8 sets, daily range): BP systolic 127–170; BP diastolic 72–94
[2021-05-21] MEDS: HYDROMORPHONE 1MG/1ML INJ IV PRN ×5 (02:33→21:20)
[2021-05-21] MEDS: HYDRALAZINE HCL 20 MG/ML VIAL IV PRN (05:59)
[2021-05-21] MEDS: HYDROCODONE/APAP 10MG-325MG TAB PO PRN ×3 (06:00→18:35)
[2021-05-21 06:39] LABS: BASOPHILS % 0.3 % (0.0-1.0); EOSINOPHILS # (AUTO) 0.1 (0.0-0.4); EOSINOPHILS % 1.4 % (0.0-6.0); HEMATOCRIT 40.9 % (38.2-49.6); HEMOGLOBIN 13.6 g/dL (14.0-18.0); LYMPHOCYTES # (AUTO) 1.5 (1.0-3.2); LYMPHOCYTES % 21.1 % (18.0-39.1); MEAN CORPUSCULAR HEMOGLOBIN 31.1 pg (28-32); MEAN CORPUSCULAR HGB CONC 33.3 g/dL (31-35); MEAN CORPUSCULAR VOLUME 93.4 fL (81-99); MONOCYTES # (AUTO) 0.9 (0.2-0.8); MONOCYTES % 13.2 % (4.4-11.3); NEUTROPHILS # (AUTO) 4.5 (2.1-6.9); NEUTROPHILS % 63.6 % (38.7-80.0); PLATELET COUNT 185 x10e3/uL (140-360); RED BLOOD COUNT 4.38 x10e6/uL (4.3-5.7); RED CELL DISTRIBUTION WIDTH 13.7 % (11.7-14.4)
[2021-05-21 07:19] LABS: ANION GAP 14.2 mmol/L (8-16); CALCIUM 8.5 mg/dL (8.4-10.2); CREATININE, SERUM 1.08 mg/dL (0.72-1.25); POTASSIUM 4.2 mmol/L (3.5-5.1)
[2021-05-21] MEDS: ASPIRIN 81 MG CHEW TAB PO SCH (08:40)
[2021-05-21] MEDS: PANTOPRAZOLE SOD 40 MG TABEC PO SCH (08:40)
[2021-05-21] MEDS: VALSARTAN 80 MG TAB PO SCH (08:40)
[2021-05-21] MEDS: DOCUSATE SODIUM 100 MG CAP PO SCH ×2 (08:40→17:08)
[2021-05-21] MEDS: ATORVASTATIN 20 MG TAB PO SCH (08:40)
[2021-05-21] MEDS: CARVEDILOL 3.125 MG TAB PO SCH ×2 (08:40→17:08)
[2021-05-21] MEDS: GABAPENTIN 300 MG CAP PO SCH ×3 (08:40→21:17)
[2021-05-21] MEDS: TRAVOPROST(OPTH) 2.5 ML BTL OP SCH (09:00)
[2021-05-21] MEDS: [UNRECOGNIZED DRUG - OTHER] PO SCH (09:00)
[2021-05-21] MEDS: FLUTICASONE NS SCH (09:00)
[2021-05-21] MEDS: AZELASTINE NS SCH (09:00)
[2021-05-21] MEDS: ENOXAPARIN SOD INJ 40 MG/0.4 ML SYR SC SCH (17:08)
[2021-05-21] MEDS: LORATADINE 10 MG TAB PO SCH (21:17)
[2021-05-21] MEDS: TRAZODONE HCL 50 MG TAB PO SCH (21:17)
[2021-05-22] VITALS (8 sets, daily range): BP systolic 143–163; BP diastolic 76–94
[2021-05-22] MEDS: HYDROCODONE/APAP 10MG-325MG TAB PO PRN ×4 (00:35→20:48)
[2021-05-22] MEDS: HYDROMORPHONE 1MG/1ML INJ IV PRN ×4 (03:03→21:20)
[2021-05-22] MEDS: AZELASTINE NS SCH ×2 (09:00→21:20)
[2021-05-22] MEDS: [UNRECOGNIZED DRUG - OTHER] PO SCH (09:00)
[2021-05-22] MEDS: FLUTICASONE NS SCH ×2 (09:00→21:20)
[2021-05-22] MEDS: ASPIRIN 81 MG CHEW TAB PO SCH (09:02)
[2021-05-22] MEDS: DOCUSATE SODIUM 100 MG CAP PO SCH ×2 (09:02→15:32)
[2021-05-22] MEDS: TRAVOPROST(OPTH) 2.5 ML BTL OP SCH (09:02)
[2021-05-22] MEDS: PANTOPRAZOLE SOD 40 MG TABEC PO SCH (09:03)
[2021-05-22] MEDS: GABAPENTIN 300 MG CAP PO SCH ×3 (09:03→20:47)
[2021-05-22] MEDS: CARVEDILOL 3.125 MG TAB PO SCH ×2 (09:03→18:10)
[2021-05-22] MEDS: ATORVASTATIN 20 MG TAB PO SCH (09:03)
[2021-05-22] MEDS: VALSARTAN 80 MG TAB PO SCH (12:17)
[2021-05-22] MEDS: ENOXAPARIN SOD INJ 40 MG/0.4 ML SYR SC SCH (15:32)
[2021-05-22] MEDS ORDERED: COREG3.125 MG PO (16:52)
[2021-05-22] MEDS ORDERED: LOVENOX40 MG/0.4 SC (16:52)
[2021-05-22] MEDS ORDERED: TRAZODONE HCL50 MG PO (16:52)
[2021-05-22] MEDS ORDERED: ACETAMINOPHEN325 M1 PO (16:52)
[2021-05-22] MEDS ORDERED: MIRALAX17 GM PO (16:52)
[2021-05-22] MEDS ORDERED: COLACE100 MG PO (16:52)
[2021-05-22] MEDS ORDERED: ONDANSETRON HCL 4 MG ORAL DISINTEGRATING TAB PO PRN (19:00)
[2021-05-22] MEDS: TRAZODONE HCL 50 MG TAB PO SCH (20:47)
[2021-05-22] MEDS: LORATADINE 10 MG TAB PO SCH (20:47)
== END 2021-05-22 21:41 | DRG 493 ==
LOC: ER 17:13 → ERHOLD 20:45 → MED/SURG3 05-13 00:17
PROVIDERS: ADMIT Internal Medicine; ATTEND Internal Medicine
PROC: 0HQ1XZZ Repair Face Skin, External Approach (ICD-10-PCS; principal; 2021-05-12)
PROC: 0QSKXZZ Reposition Left Fibula, External Approach (ICD-10-PCS; 2021-05-12)
PROC: 0QSK04Z Reposition Left Fibula with Internal Fixation Device, Open Approach (ICD-10-PCS; 2021-05-18)
PROC: 0QSH04Z Reposition Left Tibia with Internal Fixation Device, Open Approach (ICD-10-PCS; 2021-05-18)
PROC: 0SSG04Z Reposition Left Ankle Joint with Internal Fixation Device, Open Approach (ICD-10-PCS; 2021-05-18)
DX: S82.845A Nondisplaced bimalleolar fracture of left lower leg, initial encounter for closed fracture (principal); I50.22 Chronic systolic (congestive) heart failure; W18.39XA Other fall on same level, initial encounter; Y93.01 Activity, walking, marching and hiking; Y92.010 Kitchen of single-family (private) house as the place of occurrence of the external cause; I10 Essential (primary) hypertension; Z95.5 Presence of coronary angioplasty implant and graft; Z88.8 Allergy status to other drugs, medicaments and biological substances; S01.81XA Laceration without foreign body of other part of head, initial encounter; Z96.651 Presence of right artificial knee joint; Z82.49 Family history of ischemic heart disease and other diseases of the circulatory system; Z20.822 Contact with and (suspected) exposure to COVID-19; M25.372 Other instability, left ankle; Z95.0 Presence of cardiac pacemaker; Z98.890 Other specified postprocedural states; H40.9 Unspecified glaucoma; R26.89 Other abnormalities of gait and mobility; Z79.82 Long term (current) use of aspirin; E87.6 Hypokalemia; E86.0 Dehydration; D69.6 Thrombocytopenia, unspecified; E83.42 Hypomagnesemia; G89.4 Chronic pain syndrome; I25.10 Atherosclerotic heart disease of native coronary artery without angina pectoris; H53.2 Diplopia; I77.9 Disorder of arteries and arterioles, unspecified; T40.2X5A Adverse effect of other opioids, initial encounter; T40.2X1A Poisoning by other opioids, accidental (unintentional), initial encounter; Y92.230 Patient room in hospital as the place of occurrence of the external cause
CPT/HCPCS: 36415; 51700; 70450; 71045; 72125; 76000; 80048; 80053; 80061; 81001; 82550; 82553; 83519; 83735; 84100; 84439; 84443; 84484; 85025; 86255; 93005; 93306; 93880; 94660; 97139; 99284; J0360; J1170; J1650; J2270; J2405; J3370; J3475; J7030; U0002

== ENCOUNTER 2021-07-17 04:02 | Observation (INO) | payer MEDICARE, BC ==
[~2021-07-17] VITALS: Ht 172.7 cm; Wt 74.8 kg
[~2021-07-17 04:02] MED LIST changes: +ACETAMINOPHEN325 M1 PO; +COLACE100 MG PO; +COREG3.125 MG PO; +LOVENOX40 MG/0.4 SC; +MIRALAX17 GM PO; +TRAZODONE HCL50 MG PO
[2021-07-17] MEDS ORDERED: ACETAMINOPHEN 325 MG TAB PO ONE (04:15)
[2021-07-17] MEDS ORDERED: SODIUM CHLORIDE 0.9% 1000ML 1,000 ML IV ONE (04:15)
[2021-07-17] MEDS ORDERED: CEFTRIAXONE 1 GM in SODIUM CHLORIDE 0.9% 50ML 50 ML IV ONE (04:15)
[2021-07-17] MEDS ORDERED: SODIUM CHLORIDE 0.9% 1000ML 1,000 ML ONE (04:28)
[2021-07-17] MEDS ORDERED: ACETAMINOPHEN 325 MG TAB ONE (04:28)
[2021-07-17] MEDS ORDERED: CEFTRIAXONE 1 GM VIAL ONE (04:28)
[2021-07-17 04:29] LABS: BASOPHILS % 0.2 % (0.0-1.0); EOSINOPHILS # (AUTO) 0.2 (0.0-0.4); EOSINOPHILS % 2.6 % (0.0-6.0); HEMATOCRIT 43.8 % (38.2-49.6); HEMOGLOBIN 14.5 g/dL (14.0-18.0); LYMPHOCYTES # (AUTO) 1.3 (1.0-3.2); LYMPHOCYTES % 14.3 % (18.0-39.1); MEAN CORPUSCULAR HEMOGLOBIN 30.3 pg (28-32); MEAN CORPUSCULAR HGB CONC 33.1 g/dL (31-35); MEAN CORPUSCULAR VOLUME 91.6 fL (81-99); MONOCYTES # (AUTO) 0.8 (0.2-0.8); MONOCYTES % 8.3 % (4.4-11.3); NEUTROPHILS # (AUTO) 6.7 (2.1-6.9); NEUTROPHILS % 74.2 % (38.7-80.0); PLATELET COUNT 171 x10e3/uL (140-360); RED BLOOD COUNT 4.78 x10e6/uL (4.3-5.7); RED CELL DISTRIBUTION WIDTH 12.5 % (11.7-14.4)
[2021-07-17 04:44] LABS: ALBUMIN 3.6 g/dL (3.5-5.0); ALBUMIN/GLOBULIN RATIO 0.9 (0.8-2.0); CALCIUM 9.5 mg/dL (8.4-10.2); CREATININE, SERUM 1.15 mg/dL (0.72-1.25)
[2021-07-17 04:51] LABS: CREATINE KINASE MB 1.1 ng/mL (0-5.0)
[2021-07-17] MEDS ORDERED: Morphine 2mg Syringe 2 MG/ML SYR IV ONE (05:30)
[2021-07-17] MEDS ORDERED: ONDANSETRON HCL INJ 2MG/ML 2ML 2 MG/ML VIAL IV STA (06:11)
[2021-07-17] MEDS ORDERED: ONDANSETRON HCL INJ 2MG/ML 2ML 2 MG/ML VIAL ONE (06:15)
[2021-07-17] MEDS ORDERED: IOPAMIDOL 370 MG/ML 200 ML INFUS..BTL INJ ONE (07:13)
[2021-07-17] MEDS ORDERED: SODIUM CHLORIDE 0.9% 50ML 50 ML ONE (07:13)
[2021-07-17 07:23] LABS: CLARITY,URINE CLEAR (CLEAR); COLOR,URINE YELLOW (YELLOW)
[2021-07-17 07:24] LABS: KETONES,URINE NEGATIVE (NEGATIVE); LEUKOCYTE ESTERASE ,URINE NEGATIVE (NEGATIVE); NITRITE,URINE NEGATIVE (NEGATIVE); PROTEIN,URINE DIPSTICK NEGATIVE (NEGATIVE); URINE UROBILINOGEN 0.2 mg/dL (0.2 - 1)
[2021-07-17 07:30] LABS: BACTERIA,URINE FEW /HPF; EPITHELIAL CELLS,URINE FEW /LPF; RBC,URINE 0-5 /HPF (0-5); WBC,URINE (MAN) 0-5 /HPF (0-5)
[2021-07-17] MEDS ORDERED: ONDANSETRON HCL INJ 2MG/ML 2ML 2 MG/ML VIAL IV PRN (09:00)
[2021-07-17] MEDS ORDERED: Morphine 4mg Syringe 4 MG/ML INJ IV PRN (09:00)
[2021-07-17] MEDS ORDERED: ASPIRIN 81 MG CHEW TAB PO ONE ×2 (09:00→10:00)
[2021-07-17] MEDS ORDERED: HYDROCODONE/APAP 10MG-325MG TAB PO PRN (09:15)
[2021-07-17] MEDS ORDERED: POLYETHYLENE GLYCOL 3350 17 GM PACK PO PRN (09:15)
[2021-07-17] MEDS ORDERED: ACETAMINOPHEN 325 MG TAB PO PRN (09:15)
[2021-07-17 11:26] VITALS: BP 150/72
[2021-07-17 12:49] LABS: CREATINE KINASE MB 0.8 ng/mL (0-5.0)
[2021-07-17] MEDS: TRIMETHOPRIM/SULFAMETHOXAZOLE 160-800 MG TAB PO SCH ×2 (13:04→21:17)
[2021-07-17] MEDS: HYDROCODONE/APAP 10MG-325MG TAB PO PRN ×2 (13:13→20:01)
[2021-07-17 14:42] VITALS: BP 150/72
[2021-07-17] MEDS ORDERED: GABAPENTIN 300 MG CAP PO SCH (15:00)
[2021-07-17 15:33] VITALS: BP 140/76
[2021-07-17] MEDS: ENOXAPARIN SOD INJ 40 MG/0.4 ML SYR SC SCH (17:30)
[2021-07-17] MEDS: CARVEDILOL 3.125 MG TAB PO SCH (17:30)
[2021-07-17] MEDS: DOCUSATE SODIUM 100 MG CAP PO SCH (17:30)
[2021-07-17 19:40] LABS: CREATINE KINASE MB 0.7 ng/mL (0-5.0)
[2021-07-17 19:56] VITALS: BP 115/65
[2021-07-17 21:00] VITALS: BP 115/65
[2021-07-17] MEDS ORDERED: Morphine 2mg Syringe 2 MG/ML SYR IV PRN (21:00)
[2021-07-17] MEDS ORDERED: TRIMETHOPRIM/SULFAMETHOXAZOLE 160-800 MG TAB PO SCH (21:00)
[2021-07-17] MEDS: LORATADINE 10 MG TAB PO SCH (21:18)
[2021-07-17] MEDS: TRAZODONE HCL 50 MG TAB PO SCH (21:18)
[2021-07-17] MEDS: ATORVASTATIN 20 MG TAB PO SCH (21:18)
[2021-07-17] MEDS: ALBUTEROL SULF 0.083% NEB SOLN 3 ML NEB NEB PRN (22:16)
[2021-07-17 23:39] VITALS: BP 126/77
[2021-07-18] VITALS (7 sets, daily range): BP systolic 113–154; BP diastolic 64–83
[2021-07-18] MEDS: HYDROCODONE/APAP 10MG-325MG TAB PO PRN ×3 (03:17→17:50)
[2021-07-18] MEDS: ALBUTEROL SULF 0.083% NEB SOLN 3 ML NEB NEB PRN ×2 (03:40→07:50)
[2021-07-18 04:58] LABS: BASOPHILS % 0.4 % (0.0-1.0); EOSINOPHILS # (AUTO) 0.1 (0.0-0.4); EOSINOPHILS % 2.3 % (0.0-6.0); HEMATOCRIT 36.8 % (38.2-49.6); HEMOGLOBIN 12.1 g/dL (14.0-18.0); LYMPHOCYTES # (AUTO) 1.5 (1.0-3.2); LYMPHOCYTES % 27.1 % (18.0-39.1); MEAN CORPUSCULAR HEMOGLOBIN 30.4 pg (28-32); MEAN CORPUSCULAR HGB CONC 32.9 g/dL (31-35); MEAN CORPUSCULAR VOLUME 92.5 fL (81-99); MONOCYTES # (AUTO) 0.7 (0.2-0.8); NEUTROPHILS # (AUTO) 3.3 (2.1-6.9); PLATELET COUNT 130 x10e3/uL (140-360); RED BLOOD COUNT 3.98 x10e6/uL (4.3-5.7); RED CELL DISTRIBUTION WIDTH 12.7 % (11.7-14.4)
[2021-07-18 05:12] LABS: ANION GAP 12.6 mmol/L (8-16); CALCIUM 9.1 mg/dL (8.4-10.2); CREATININE, SERUM 1.32 mg/dL (0.72-1.25); POTASSIUM 3.6 mmol/L (3.5-5.1)
[2021-07-18 05:54] LABS: CREATINE KINASE MB 0.8 ng/mL (0-5.0)
[2021-07-18] MEDS: TRAVOPROST(OPTH) 2.5 ML BTL OP SCH (09:00)
[2021-07-18] MEDS: AZELASTINE NS SCH (09:00)
[2021-07-18] MEDS ORDERED: CLONAZEPAM 1 MG TAB PO SCH (09:00)
[2021-07-18] MEDS: FLUTICASONE NS SCH (09:00)
[2021-07-18] MEDS: [UNRECOGNIZED DRUG - MIXTURE] PO SCH (09:00)
[2021-07-18] MEDS: PANTOPRAZOLE SOD 40 MG TABEC PO SCH (09:30)
[2021-07-18] MEDS: DOCUSATE SODIUM 100 MG CAP PO SCH ×2 (09:30→17:47)
[2021-07-18] MEDS: ASPIRIN 81 MG CHEW TAB PO SCH (09:30)
[2021-07-18] MEDS: VALSARTAN 80 MG TAB PO SCH (09:30)
[2021-07-18] MEDS: TRIMETHOPRIM/SULFAMETHOXAZOLE 160-800 MG TAB PO SCH (09:30)
[2021-07-18] MEDS: CEFUROXIME AXETIL 250 MG TAB PO SCH ×2 (11:39→17:47)
[2021-07-18] MEDS: CARVEDILOL 3.125 MG TAB PO SCH ×2 (11:39→17:47)
[2021-07-18] MEDS ORDERED: TROLAMINE SALICYLATE 35.4 GM CR TP PRN (12:15)
[2021-07-18] MEDS: ENOXAPARIN SOD INJ 40 MG/0.4 ML SYR SC SCH (17:47)
[2021-07-18] MEDS: LORATADINE 10 MG TAB PO SCH (21:00)
[2021-07-18] MEDS: ATORVASTATIN 20 MG TAB PO SCH (21:00)
[2021-07-18] MEDS: TRAZODONE HCL 50 MG TAB PO SCH (22:00)
[2021-07-19] VITALS: BP 133/73
[2021-07-19 04:46] VITALS: BP 156/87
[2021-07-19 07:40] VITALS: BP 143/85
[2021-07-19 08:07] VITALS: BP 143/85
[2021-07-19] MEDS: [UNRECOGNIZED DRUG - MIXTURE] PO SCH (09:00)
[2021-07-19] MEDS: AZELASTINE NS SCH (09:00)
[2021-07-19] MEDS: FLUTICASONE NS SCH (09:00)
[2021-07-19] MEDS: ASPIRIN 81 MG CHEW TAB PO SCH (09:33)
[2021-07-19] MEDS: TRAVOPROST(OPTH) 2.5 ML BTL OP SCH (09:33)
[2021-07-19] MEDS: PANTOPRAZOLE SOD 40 MG TABEC PO SCH (09:33)
[2021-07-19] MEDS: VALSARTAN 80 MG TAB PO SCH (09:34)
[2021-07-19] MEDS: CARVEDILOL 3.125 MG TAB PO SCH (09:34)
[2021-07-19] MEDS: CEFUROXIME AXETIL 250 MG TAB PO SCH (09:34)
[2021-07-19] MEDS: DOCUSATE SODIUM 100 MG CAP PO SCH (09:34)
[2021-07-19] MEDS: HYDROCODONE/APAP 10MG-325MG TAB PO PRN (09:43)
[2021-07-19] MEDS ORDERED: CLONAZEPAM 1 MG TAB PO SCH (21:00)
== END 2021-07-19 11:55 ==
LOC: ER 04:11 → ERHOLD 08:53 → MED/SURG2 11:18
PROVIDERS: ADMIT Internal Medicine; ATTEND Internal Medicine
DX: I25.110 Atherosclerotic heart disease of native coronary artery with unstable angina pectoris (principal); J20.9 Acute bronchitis, unspecified; Z20.822 Contact with and (suspected) exposure to COVID-19; F41.9 Anxiety disorder, unspecified; I49.5 Sick sinus syndrome; Z95.0 Presence of cardiac pacemaker; N28.89 Other specified disorders of kidney and ureter; I25.10 Atherosclerotic heart disease of native coronary artery without angina pectoris; Z95.5 Presence of coronary angioplasty implant and graft; I12.9 Hypertensive chronic kidney disease with stage 1 through stage 4 chronic kidney disease, or unspecified chronic kidney disease; N18.30 Chronic kidney disease, stage 3 unspecified; H40.9 Unspecified glaucoma; Z96.651 Presence of right artificial knee joint; E78.5 Hyperlipidemia, unspecified; G89.4 Chronic pain syndrome; N40.0 Benign prostatic hyperplasia without lower urinary tract symptoms; N17.9 Acute kidney failure, unspecified
CPT/HCPCS: 36415 ×2; 71045; 71260; 80048; 80053; 81001; 82550 ×2; 82553 ×2; 83605; 84484 ×2; 85025 ×2; 85379; 87040; 87086; 93005; 93306; 94640 ×2; 94799 ×2; 99285; G0378 ×3; J0696; J1650 ×2; J2270; J2405; J7030; Q9967; S0164 ×2; U0002

== ENCOUNTER → 2022-04-30 | Day surgery (SDC) | payer MEDICARE, BC ==
[2022-04-26 13:02] LABS: BASOPHILS % 0.1 % (0.0-1.0); EOSINOPHILS # (AUTO) 0.3 (0.0-0.4); EOSINOPHILS % 2.9 % (0.0-6.0); HEMATOCRIT 49.6 % (38.2-49.6); HEMOGLOBIN 16.4 g/dL (14.0-18.0); LYMPHOCYTES # (AUTO) 1.5 (1.0-3.2); MEAN CORPUSCULAR HEMOGLOBIN 31.7 pg (28-32); MEAN CORPUSCULAR HGB CONC 33.1 g/dL (31-35); MEAN CORPUSCULAR VOLUME 95.8 fL (81-99); MONOCYTES % 10.3 % (4.4-11.3); NEUTROPHILS # (AUTO) 6.6 (2.1-6.9); NEUTROPHILS % 70.5 % (38.7-80.0); PLATELET COUNT 115 x10e3/uL (140-360); RED BLOOD COUNT 5.18 x10e6/uL (4.3-5.7); RED CELL DISTRIBUTION WIDTH 13.7 % (11.7-14.4)
[~2022-04-30] MED LIST changes: +CARVEDILOL3.125 MG PO; +FLOMAX0.4 MG PO; +MIDAZOLAM HCL 2 MG/2 ML VIAL ONE; +PROPOFOL IV EMULSION 10 MG/ML 20 ML VIAL ONE
[2022-04-30 11:45] VITALS: BP 137/82
== END | disposition home or self-care (01) ==
LOC: OR 08:25
PROVIDERS: ATTEND Internal Medicine Gastroenterology
DX: K21.00 Gastro-esophageal reflux disease with esophagitis, without bleeding (principal); K31.7 Polyp of stomach and duodenum; K29.50 Unspecified chronic gastritis without bleeding; K22.719 Barrett's esophagus with dysplasia, unspecified; K44.9 Diaphragmatic hernia without obstruction or gangrene; I25.10 Atherosclerotic heart disease of native coronary artery without angina pectoris; I10 Essential (primary) hypertension; I48.91 Unspecified atrial fibrillation; H91.90 Unspecified hearing loss, unspecified ear; F41.9 Anxiety disorder, unspecified; Z88.6 Allergy status to analgesic agent; Z88.8 Allergy status to other drugs, medicaments and biological substances; Z01.810 Encounter for preprocedural cardiovascular examination; Z01.812 Encounter for preprocedural laboratory examination; Z20.822 Contact with and (suspected) exposure to COVID-19; Z79.02 Long term (current) use of antithrombotics/antiplatelets; Z79.82 Long term (current) use of aspirin; Z79.899 Other long term (current) drug therapy; Z95.0 Presence of cardiac pacemaker; Z95.5 Presence of coronary angioplasty implant and graft
CPT/HCPCS: 0223U; 36415; 43239; 85025; 93005; J2250; J2704

== ENCOUNTER → 2024-06-02 | Day surgery (SDC) | payer MEDICARE, BC ==
[2024-05-27 14:48] LABS: BASOPHILS % 0.3 % (0.0-1.0); EOSINOPHILS # (AUTO) 0.4 (0.0-0.4); HEMATOCRIT 43.1 % (38.2-49.6); HEMOGLOBIN 14.2 g/dL (14.0-18.0); LYMPHOCYTES # (AUTO) 1.4 (1.0-3.2); LYMPHOCYTES % 24.5 % (18.0-39.1); MEAN CORPUSCULAR HEMOGLOBIN 31.6 pg (28-32); MEAN CORPUSCULAR HGB CONC 32.9 g/dL (31-35); MEAN CORPUSCULAR VOLUME 95.8 fL (81-99); MONOCYTES # (AUTO) 0.7 (0.2-0.8); MONOCYTES % 12.3 % (4.4-11.3); NEUTROPHILS # (AUTO) 3.3 (2.1-6.9); NEUTROPHILS % 56.6 % (38.7-80.0); PLATELET COUNT 111 x10e3/uL (140-360); WHITE BLOOD COUNT 5.79 x10e3/uL (4.8-10.8)
[~2024-06-02] MED LIST changes: +ALLEGRA ALLERGY60 MG PO; +ARICEPT5 MG PO; +BUPIVACAINE HCL 0.5% INJ 30 ML VIAL INJ ONE; +CIALIS5 MG PO; +DEXAMETHASONE SOD PHOS 10 MG/1 ML VIAL ONE; +DEXMEDETOMIDINE HCL 200 MCG/2 ML VIAL ONE; +FENTANYL CITRATE/PF 100MCG/2 ML INJ ONE; +FLONASE ALLERG9.9 ML INH; +HYDROCODON-ACE1 EA12 PO; +LIDOCAINE HCL 2% LOCAL INJ 5 ML SDV VIAL INJ ONE; +MUPIROCIN 2% OINT 22 GM TUBE ONE; +NEURONTIN300 MG PO; +ONDANSETRON HCL INJ 2MG/ML 2ML 2 MG/ML VIAL ONE; +PRAMIPEXOLE E2.25 MG PO; +ROPIVACAINE 0.5% 5 MG/ML 30 ML SDV ONE; +SODIUM CHLORIDE 0.9% INJ 100 ML BAG ONE; +VITAMIN B122500 MCG PO; +WELLBUTRIN XL300 MG PO
[2024-06-02] MEDS: LACTATED RINGER'S 1,000 ML ONE (06:22)
[2024-06-02 07:28] VITALS: TEMP 97.3
[2024-06-02 08:00] VITALS: BP 145/83; PULSE 63; RESP 16; O2SAT 99
== END | disposition home or self-care (01) ==
LOC: OR 05:40
PROVIDERS: ATTEND Plastic Surgery
DX: G56.02 Carpal tunnel syndrome, left upper limb (principal); M65.352 Trigger finger, left little finger; M65.842 Other synovitis and tenosynovitis, left hand; I10 Essential (primary) hypertension; I25.10 Atherosclerotic heart disease of native coronary artery without angina pectoris; I42.9 Cardiomyopathy, unspecified; I48.91 Unspecified atrial fibrillation; E78.5 Hyperlipidemia, unspecified; G89.29 Other chronic pain; M19.90 Unspecified osteoarthritis, unspecified site; K21.9 Gastro-esophageal reflux disease without esophagitis; K22.70 Barrett's esophagus without dysplasia; F41.9 Anxiety disorder, unspecified; Z01.810 Encounter for preprocedural cardiovascular examination; Z01.812 Encounter for preprocedural laboratory examination; Z01.818 Encounter for other preprocedural examination; Z79.02 Long term (current) use of antithrombotics/antiplatelets; Z79.899 Other long term (current) drug therapy; Z95.0 Presence of cardiac pacemaker; Z95.5 Presence of coronary angioplasty implant and graft
CPT/HCPCS: 25115; 26055; 36415; 71046; 85025; 93005; J0690; J1100; J2001; J2250; J2405; J2704; J2795; J3010; J7050; J7121

== ENCOUNTER → 2025-02-09 | Day surgery (SDC) | payer MEDICARE, BC ==
[~2025-02-09] MED LIST changes: -BUPIVACAINE HCL 0.5% INJ 30 ML VIAL INJ ONE; -DEXAMETHASONE SOD PHOS 10 MG/1 ML VIAL ONE; -DEXMEDETOMIDINE HCL 200 MCG/2 ML VIAL ONE; -FENTANYL CITRATE/PF 100MCG/2 ML INJ ONE; +GLUCAGON FOR INJ 1 MG VIAL ONE; +HYOSCYAMINE SULFATE 0.5 MG/ML INJ ONE; +LACTATED RINGER'S 1,000 ML ONE; -MIDAZOLAM HCL 2 MG/2 ML VIAL ONE; +MIRAPEX ER1.5 MG PO; -MUPIROCIN 2% OINT 22 GM TUBE ONE; -ONDANSETRON HCL INJ 2MG/ML 2ML 2 MG/ML VIAL ONE; +PHENYLEPHRINE 0.1 MG/ML SYR ONE; -ROPIVACAINE 0.5% 5 MG/ML 30 ML SDV ONE; -SODIUM CHLORIDE 0.9% INJ 100 ML BAG ONE
[2025-02-09 11:32] LABS: BASOPHILS % 0.5 % (0.0-1.0); EOSINOPHILS # (AUTO) 0.2 (0.0-0.4); EOSINOPHILS % 4.5 % (0.0-6.0); HEMATOCRIT 36.4 % (38.2-49.6); HEMOGLOBIN 12.5 g/dL (14.0-18.0); LYMPHOCYTES # (AUTO) 1.1 (1.0-3.2); LYMPHOCYTES % 26.4 % (18.0-39.1); MEAN CORPUSCULAR HEMOGLOBIN 31.8 pg (28-32); MEAN CORPUSCULAR HGB CONC 34.3 g/dL (31-35); MEAN CORPUSCULAR VOLUME 92.6 fL (81-99); MONOCYTES # (AUTO) 0.5 (0.2-0.8); MONOCYTES % 11.5 % (4.4-11.3); NEUTROPHILS # (AUTO) 2.4 (2.1-6.9); NEUTROPHILS % 57.1 % (38.7-80.0); PLATELET COUNT 101 x10e3/uL (140-360); RED BLOOD COUNT 3.93 x10e6/uL (4.3-5.7); RED CELL DISTRIBUTION WIDTH 13.5 % (11.7-14.4); WHITE BLOOD COUNT 4.25 x10e3/uL (4.8-10.8)
[2025-02-09 14:40] VITALS: BP 110/71; PULSE 66; RESP 16; TEMP 97.1; O2SAT 99
== END | disposition home or self-care (01) ==
LOC: OR 10:17
PROVIDERS: ATTEND Internal Medicine Gastroenterology
DX: R19.5 Other fecal abnormalities (principal); D12.2 Benign neoplasm of ascending colon; D12.3 Benign neoplasm of transverse colon; K31.7 Polyp of stomach and duodenum; K29.50 Unspecified chronic gastritis without bleeding; K29.80 Duodenitis without bleeding; K31.89 Other diseases of stomach and duodenum; K21.9 Gastro-esophageal reflux disease without esophagitis; R09.A2 Foreign body sensation, throat; K44.9 Diaphragmatic hernia without obstruction or gangrene; K57.30 Diverticulosis of large intestine without perforation or abscess without bleeding; R19.7 Diarrhea, unspecified; K64.8 Other hemorrhoids; G47.33 Obstructive sleep apnea (adult) (pediatric); I25.10 Atherosclerotic heart disease of native coronary artery without angina pectoris; I10 Essential (primary) hypertension; E78.5 Hyperlipidemia, unspecified; N28.9 Disorder of kidney and ureter, unspecified; H40.9 Unspecified glaucoma; F41.9 Anxiety disorder, unspecified; Z01.810 Encounter for preprocedural cardiovascular examination; Z01.812 Encounter for preprocedural laboratory examination; Z79.02 Long term (current) use of antithrombotics/antiplatelets; Z79.899 Other long term (current) drug therapy; Z95.5 Presence of coronary angioplasty implant and graft; Z95.0 Presence of cardiac pacemaker; Z87.19 Personal history of other diseases of the digestive system
CPT/HCPCS: 36415; 43239; 43251; 45384; 45385; 85025; 88305; 88342; 93005; J1610; J1980; J2003; J2704; J7121; 45378